=== PATIENT | male | born 1950 | race Caucasian/White ===

== ENCOUNTER → 2017-07-27 | Outpatient (CLI) | payer OTHER | LOC: BHFA 10:00 | PROVIDERS: ATTEND Internal Medicine Cardiovascular Disease | DX: I25.10 Atherosclerotic heart disease of native coronary artery without angina pectoris (principal); R60.9 Edema, unspecified ==

== ENCOUNTER 2017-07-28 05:55 | Day surgery (SDC) | payer OTHER ==
[2017-07-28] MEDS ORDERED: ASPIRIN EC 325 MG TAB PO ONE ×2 (06:05→06:26)
[2017-07-28] MEDS ORDERED: FAMOTIDINE 20 MG TAB PO ONE (06:05)
[2017-07-28] MEDS ORDERED: NS 1,000 ML IV ONE (06:05)
[2017-07-28] MEDS ORDERED: diphenhydrAMINE 25 MG CAP PO ONE ×2 (06:05→06:25)
[2017-07-28] MEDS ORDERED: DIAZEPAM 5 MG TAB PO ONE (06:05)
[2017-07-28] MEDS ORDERED: FAMOTIDINE 20 MG TAB ONE (06:25)
[2017-07-28] MEDS ORDERED: DIAZEPAM 5 MG TAB ONE (06:26)
--- NOTE | 2017-07-28 06:36 | CPEKG ---
Heart Rate: 60 RR Interval: 1000 P-R Interval: 160 QRSD Interval: 94 QT Interval: 408 QTC Interval: 408 P [place]: 47 QRS [place]: -82 T Wave [place]: 52 EKG Severity - ABNORMAL ECG - EKG Impression: SINUS RHYTHM EKG Impression: VENTRICULAR PREMATURE COMPLEX EKG Impression: LAD, CONSIDER LEFT ANTERIOR FASCICULAR BLOCK Electronically Signed By: Ashutosh Sullivan 28-Jul-2017 11:23:22
[2017-07-28 06:54] LABS: PLATELET COUNT 183 10^3/uL (150-400)
[2017-07-28] MEDS ORDERED: CLOPIDOGREL BISULFATE 75 MG TAB ONE (06:59)
[2017-07-28 07:04] LABS: INR 0.98 (0.83-1.16); PROTIME(PATIENT) 13.2 SEC (12.0-15.0)
--- NOTE | 2017-07-28 07:06 | PDPROPOC ---
Sedation Plan of Care Sedation Plan of Care: mental status noted, patient can tolerate sedation ASA Classification: ASA 2 Planned drugs: fentanyl, midazolam Mallampati Score: Class 2 Mallampati Reference Image: Patient passed 3-3-2 rule?: Yes
--- NOTE | 2017-07-28 07:06 | PDHPUP ---
History & Physical Update H&P update statement: This history and physical update is based on an assessment of the patient which was completed after admission or registration (within 24 hours), but prior to the surgery/procedure. H&P update: H&P reviewed & patient examined, no change in patient's condition since H&P completed
[2017-07-28] MEDS ORDERED: LIDOCAINE 1% 300 MG/30 ML SDV ONE (07:07)
[2017-07-28] MEDS ORDERED: IOPAMIDOL (ISOVUE-370) 150 ML BTL IV ONE (07:08)
[2017-07-28] MEDS ORDERED: MIDAZOLAM 2 MG/2 ML VIAL ONE (07:08)
[2017-07-28] MEDS ORDERED: fentaNYL 100 MCG/2 ML INJ ONE (07:08)
[2017-07-28] MEDS ORDERED: HEPARIN 10,000 UNIT/10 ML MDV (1,000 UNIT/ML) ONE (07:55)
[2017-07-28] MEDS ORDERED: HYDROCODONE/APAP 5/325 TAB PO PRN (08:16)
[2017-07-28] MEDS ORDERED: ATROPINE SULFATE 1 MG/10 ML SYR IVP PRN (08:16)
[2017-07-28] MEDS ORDERED: NITROGLYCERIN 0.4 MG BTL SL PRN (08:16)
[2017-07-28] MEDS ORDERED: ONDANSETRON 4 MG/2 ML VIAL IVP PRN (08:16)
[2017-07-28] MEDS ORDERED: OXYCODONE/APAP 5/325 TAB PO PRN (08:16)
--- NOTE | 2017-07-28 08:57 | CPIP ---
[f rep st] INVASIVE CARDIAC PROCEDURE DATE OF PROCEDURE: 07/28/2017 INDICATIONS FOR PROCEDURE: Shortness of breath, swelling, history of coronary artery disease. PROCEDURE: 1. Nonselective right groin sheathogram. 2. 7-Micronesian sheath right common vein. 3. Right heart catheterization with [place]-Briana catheter. 4. Bilateral selective coronary angiography. 5. Left heart catheterization. 6. Left ventriculogram. 7. Right groin closure with 6-Micronesian Angio-Seal. BRIEF HISTORY: This is a 66-year-old male with a history of multiple PCIs in the past with worsening shortness of breath and lower extremity swelling. The patient had apparently an evaluation as an ou tpatient for venous thromboembolic disease which was apparently normal. Given the patient's worsenin g symptoms, we decided to proceed with right and left heart catheterization given the patient's clini felipe history. DESCRIPTION OF PROCEDURE: After informed consent, the patient was brought to [facility] where the right sahil in was prepped and draped in sterile fashion. Using lidocaine, a short 6-Micronesian sheath in the right femoral artery verified angiographically. A 7-Micronesian sheath placed in the right common femoral vein. Through the 7-Micronesian sheath, a [place]-Briana catheter was advanced. PA pressure was measured to be sys tolic 68 over diastolic 27 with a mean of 41. RV pressure was 61 with a diastolic 22 and an end of 2 5. RA pressure was measured to be 13 with an A-wave of 18, V-wave of 20. The wedge pressure was smita sured to be A-wave of 18 and V-wave 22 with a mean of 17. Cardiac output was measured out by Carter to be 5.3 with a cardiac index of 2.4. PA sat was measured to be 75%. AO sat was measured to be 94%. [place]water-Briana catheter was then removed. A JL4 catheter was then advanced to the left coronary artery. Images of the left coronary artery revealed a short left main with no significant disease. The left circumflex artery gave off a large marginal 1 proximally, which was healthy and free of disease. Th ere was a stent noted in the mid distal left circumflex which was widely patent after the takeoff of another large marginal 2 artery and terminating to a marginal 3 artery. The LAD was a long vessel wh ich wrapped around the apex. The LAD gave off a diagonal 1 proximally, which was healthy and free of disease. Distally, the LAD appeared to be widely patent. After images were obtained, the JL4 polly ter was removed. A JR4 catheter was advanced through the right coronary artery. Images of the right coronary artery revealed normal ostia, proximal, mid, distal RCA. The RPD and RPLS appeared to be h ealthy and free of disease. After images were obtained, the JR4 catheter was removed. The pigtail c atheter was advanced to the left ventricle. LVEDP was 15 mmHg. The left ventricle in the CONTEH projec tion showed EF of 65% with no wall motion abnormalities. No pullback gradient between the LV and aor ta. Pigtail catheter was removed over an 0.035 wire. The right groin was closed with a 6-Micronesian Ang io-Seal. The patient tolerated the procedure well with no complications. IMPRESSION: 1. Widely patent stent in the left circumflex system. 2. Widely patent LAD and right coronary artery. 3. Normal ejection fraction. 4. Moderately severe pulmonary hypertension. PLAN: During the case, the patient did have mild clot development in the sheaths bilaterally and was administered 5000 heparin IV. Given the patient's lower extremity swelling, elevated pulmonary pres sures, as well as this development of a small amount of clot in the sheaths, it leads me to believe t hat potentially there is an underlying venous thromboembolic situation developing. We will check a [facility] extremity venous ultrasound now for further evaluation. Further orders following clinical cours e. Alvin #: [id number]
[2017-07-28] MEDS ORDERED: CLOPIDOGREL BISULFATE 75 MG TAB PO SCH (09:00)
[2017-07-28] MEDS ORDERED: IOPAMIDOL (ISOVUE 370) 100 ML BTL IV ONE (09:57)
== END 2017-07-28 12:50 | disposition home or self-care (01) ==
LOC: FCATH 05:55
PROVIDERS: ATTEND Internal Medicine Cardiovascular Disease
PROC: B2111ZZ Fluoroscopy of Multiple Coronary Arteries using Low Osmolar Contrast (ICD-10-PCS; principal; 2017-07-28)
PROC: 4A023N8 Measurement of Cardiac Sampling and Pressure, Bilateral, Percutaneous Approach (ICD-10-PCS; principal; 2017-07-28)
PROC: B2151ZZ Fluoroscopy of Left Heart using Low Osmolar Contrast (ICD-10-PCS; principal; 2017-07-28)
DX: I27.20 Pulmonary hypertension, unspecified (principal); E78.00 Pure hypercholesterolemia, unspecified; I11.0 Hypertensive heart disease with heart failure; Z95.5 Presence of coronary angioplasty implant and graft
CPT/HCPCS: J1644; J2250; J2270; J3010; Q9967